=== PATIENT | male | born 1980 | race Caucasian/White ===

== ENCOUNTER 2017-06-03 13:47 | Emergency (ER) | payer MEDICAID ==
[~2017-06-03] VITALS: Ht 167.6 cm; Wt 83.5 kg
[2017-06-03 13:52] VITALS: BP 129/88
--- NOTE | 2017-06-03 14:17 | NUR ---
PATIENT AMBULATED TO OF#4 AT THIS TIME.
--- NOTE | 2017-06-03 14:35 | NUR ---
PATIENT PRESENTS TO ED WITH RIGHT 4TH DIGIT PAIN, LEFT 4TH DIGIT PAIN SINCE YESTERDAY; DENIES INJURY OR TRAUMA HX NONE .DENIES N/V/D; SKIN IS PINK/WARM/DRY; AAOX4 WITH EVEN AND STEADY GAIT; LUNGS CLEAR BL; HR EVEN AND REGULAR; PT DENIES ANY FEVER, CP, SOB, OR COUGH AT THIS TIME; PATIENT STATES PAIN OF 10/10 AT THIS TIME; PATIENT POSITIONED FOR COMFORT; HOB ELEVATED; BEDRAILS UP X2; BED DOWN. ER MD MADE AWARE OF PT STATUS. SLIGHT SWELLING NOTED ON RIGHT 4TH FINGER.
--- NOTE | 2017-06-03 15:18 | NUR ---
DR. ARROYO AT BEDSIDE
[2017-06-03 15:34] VITALS: BP 127/72
--- NOTE | 2017-06-03 15:35 | NUR ---
Patient discharged with v/s stable. Written and verbal after care instructions given and explained. Patient alert, oriented and verbalized understanding of instructions. Ambulatory with steady gait. All questions addressed prior to discharge. ID band removed. Patient advised to follow up with PMD. Rx of NAPROSUN given. Patient educated on indication of medication including possible reaction and side effects. Opportunity to ask questions provided and answered.
== END 2017-06-03 15:35 | disposition home or self-care (01) ==
LOC: MED 13:47
DX: S63.615A Unspecified sprain of left ring finger, initial encounter (principal); S63.614A Unspecified sprain of right ring finger, initial encounter; F17.210 Nicotine dependence, cigarettes, uncomplicated; X58.XXXA Exposure to other specified factors, initial encounter; Y93.89 Activity, other specified; Y92.099 Unspecified place in other non-institutional residence as the place of occurrence of the external cause; Y99.8 Other external cause status
CPT/HCPCS: 73140; 99284

== ENCOUNTER 2018-01-08 15:30 | Emergency (ER) | payer MEDICAID ==
[~2018-01-08] VITALS: Ht 167.6 cm; Wt 78.6 kg
[2018-01-08 15:38] VITALS: BP 147/93
--- NOTE | 2018-01-08 15:43 | NUR ---
C/O RECTAL PLAIN ON DEFECATION X 3 DAYS; DENIES BLOODY STOOL HX; DENIES RX; DENIES
[2018-01-08 16:57] VITALS: BP 147/93
--- NOTE | 2018-01-08 16:57 | NUR ---
Patient discharged with v/s stable. Written and verbal after care instructions given and explained. Patient alert, oriented and verbalized understanding of instructions. Ambulatory with steady gait. All questions addressed prior to discharge. ID band removed. Patient advised to follow up with PMD. Rx of Anusol HC 25mg Rectal Suppository, Naprosyn 375mg Tablet, Colace 100mg casule given. Patient educated on indication of medication including possible reaction and side effects. Opportunity to ask questions provided and answered.
== END 2018-01-08 16:57 | disposition home or self-care (01) ==
LOC: MED 15:30
DX: K59.00 Constipation, unspecified (principal); K62.89 Other specified diseases of anus and rectum; L29.9 Pruritus, unspecified
CPT/HCPCS: 99283

== ENCOUNTER 2020-11-29 04:09 | Emergency (ER) | payer MEDICAID ==
[~2020-11-29] VITALS: Ht 167.6 cm; Wt 88.5 kg
[2020-11-29 04:20] VITALS: BP 156/90
--- NOTE | 2020-11-29 04:20 | NUR ---
TO BED AMBULATORY
[2020-11-29] MEDS ORDERED: MORPHINE SULFATE 2 MG/ML SYR ONE (04:53)
[2020-11-29] MEDS ORDERED: ONDANSETRON 4 MG/2 ML VIAL ONE (04:53)
[2020-11-29] MEDS ORDERED: MORPHINE SULFATE 4 MG/ML SYR IM ONE (04:55)
[2020-11-29] MEDS ORDERED: ONDANSETRON 4 MG/2 ML VIAL IM ONE (04:55)
[2020-11-29 05:12] LABS: BASOPHILS # (AUTO) 0.1 K/uL (0.00-0.22); BASOPHILS % (AUTO) 1.4 % (0.0-2.0); EOSINOPHILS # (AUTO) 0.2 K/uL (0-0.4); EOSINOPHILS % (AUTO) 1.8 % (0.0-4.0); HEMATOCRIT 45.8 % (36-52); HEMOGLOBIN 16.1 g/dL (12.0-18.0); LYMPHOCYTES # (AUTO) 3.2 K/uL (2.0-11.5); LYMPHOCYTES % (AUTO) 34.4 % (20.5-51.1); MEAN CORPUSCULAR HEMOGLOBIN 30 pg (27-31); MEAN CORPUSCULAR HGB CONC 35 g/dL (33-37); MEAN CORPUSCULAR VOLUME 86.3 fL (80-94); MONOCYTES # (AUTO) 0.6 K/uL (0.8-1.0); MONOCYTES % (AUTO) 6.6 % (1.7-9.3); NEUTROPHILS # (AUTO) 5.1 K/uL (1.8-7.7); NEUTROPHILS % (AUTO) 55.8 % (42.2-75.2); PLATELET COUNT (AUTO) 329 K/uL (140-450); RED BLOOD CELL COUNT(AUTO) 5.31 MIL/uL (4.20-6.10); RED CELL DISTRIBUTION WIDTH 12.6 % (11.6-13.7); WHITE BLOOD COUNT (AUTO) 9.2 K/uL (4.8-10.8)
[2020-11-29 05:27] LABS: ALBUMIN 4.3 g/dL (3.4-5.0); CARBON DIOXIDE 24.1 mmol/L (21-32); CREATININE 0.9 mg/dL (0.6-1.3); POTASSIUM 4.1 mmol/L (3.5-5.1); TOTAL BILIRUBIN 0.9 mg/dL (0.0-1.0)
[2020-11-29] MEDS ORDERED: SULF-59 PO (05:59)
[2020-11-29] MEDS ORDERED: KETO10TA2 PO (05:59)
--- NOTE | 2020-11-29 06:13 | NUR ---
d/c with VSS. d/c education given. opportunity to ask questions given and answered. rx of toradol and bactrim given.
[2020-11-29 06:14] VITALS: BP 114/69
== END 2020-11-29 06:14 | disposition home or self-care (01) ==
LOC: MED 04:09
DX: S30.861A Insect bite (nonvenomous) of abdominal wall, initial encounter (principal); W57.XXXA Bitten or stung by nonvenomous insect and other nonvenomous arthropods, initial encounter; Y93.89 Activity, other specified; Y92.89 Other specified places as the place of occurrence of the external cause; Y99.8 Other external cause status
CPT/HCPCS: 36415; 80053; 84460; 85025; 96372; 99284; J2270; J2405